=== PATIENT | male | born 1990 | race American Indian/Alaskan Native ===

== ENCOUNTER → 2024-04-26 15:22 | Outpatient (CLI) | payer OTHER, SELFPAY ==
--- NOTE | 2024-04-26 15:30 | DI.RAD.S_ITS ---
PROCEDURE: XR THORACIC SPINE 3V INDICATIONS: Dislocation of other parts of thorax, initial encounter TECHNIQUE: 3 views of the thoracic spine were acquired. COMPARISON: None. FINDINGS: Bones: No fractures or dislocations. No suspicious bony lesions. Thirteen pairs of ribs are noted, and appear intact where visualized. Soft tissues: No paravertebral stripe thickening. IMPRESSION: No acute osseous abnormalities. No significant degenerative changes. There appears to be 13 pairs of ribs. Dictated by: Seth Rodriguez M.D. on 04/26/2024 at 18:00 Approved by: Seth Rodriguez M.D. on 04/26/2024 at 18:01
== END ==
LOC: RAD 15:28
PROVIDERS: Referring Provider Family Medicine; Visit Provider Family Medicine
DX: S23.29XA Dislocation of other parts of thorax, initial encounter (principal)
CPT/HCPCS: 72072